=== PATIENT | male | born 1960 | race Caucasian/White ===

== ENCOUNTER 2018-02-27 22:46 | Inpatient (IN) | payer MEDICARE, MEDICAID ==
[~2018-02-27] VITALS: Ht 162.6 cm; Wt 80.7 kg
[~2018-02-27 22:46] MED LIST: ASPI-1159 PO; ATOR20TA65 PO
[2018-02-28] MEDS ORDERED: SODIUM CHLORIDE 0.9% 1,000 ML IV ONE (00:21)
[2018-02-28 02:35] LABS: CHLORIDE 107 mEq/L (98-107)
[2018-02-28 02:37] LABS: BASOPHILS % 0.6 % (0.0-2.0); HEMATOCRIT. 47.5 % (42.0-52.0); LYMPHOCYTES % 16.3 % (20.0-50.0); MEAN CORPUSCULAR HEMOGLOBIN 32.2 pg (28.0-32.0); MEAN CORPUSCULAR VOLUME 95.9 fL (80.0-94.0); MEAN PLATELET VOLUME 7.8 fl (7.4-10.4); MONOCYTES % 9.4 % (2.0-8.0); NEUTROPHILS % 70.7 % (40.0-76.0); PLATELET 219 x1000/uL (130-400); RED BLOOD CELL COUNT 4.95 mill/uL (4.7-6.1); RED CELL DISTRIBUTION WIDTH 14.4 % (11.6-14.6)
[2018-02-28 09:24] VITALS: BP 143/81
[2018-02-28] MEDS ORDERED: ATOR40TA70 PO (09:33)
[2018-02-28] MEDS ORDERED: SACU1TAB PO (09:33)
[2018-02-28] MEDS ORDERED: GABA-531 PO (09:33)
[2018-02-28] MEDS ORDERED: FURO40TA5 PO (09:33)
[2018-02-28] MEDS ORDERED: CARV6.2548 PO (09:33)
[2018-02-28] MEDS ORDERED: CLOP75TA33 PO (09:33)
[2018-02-28] MEDS ORDERED: ISOS60TA4 PO (09:33)
[2018-02-28] MEDS ORDERED: DOCUSATE SODIUM 100MG CAPSULE PO PRN (10:30)
[2018-02-28] MEDS ORDERED: GUAIFENESIN 200MG/10ML SUGAR FREE UDC PO PRN (10:30)
[2018-02-28] MEDS ORDERED: ONDANSETRON HCL 4MG/2ML INJ IV PRN (10:30)
[2018-02-28] MEDS: CLOPIDOGREL 75MG TABLET PO SCH ×3 (10:30→18:56)
[2018-02-28] MEDS ORDERED: ACETAMINOPHEN 325MG TABLET PO PRN (10:30)
[2018-02-28] MEDS ORDERED: NITROGLYCERIN 0.4MG TABLET SL SL PRN (10:30)
[2018-02-28] MEDS ORDERED: TRAMADOL 50MG TABLET PO PRN (10:30)
[2018-02-28] MEDS: FAMOTIDINE 20MG TABLET PO SCH ×3 (10:30→21:05)
[2018-02-28] MEDS ORDERED: CLONIDINE 0.1MG TABLET PO PRN (10:30)
[2018-02-28] MEDS ORDERED: IPRATROPIUM/ALBUTEROL 0.5-3(2.5)MG/3ML NEB INH PRN (10:30)
[2018-02-28] MEDS ORDERED: NA PHOS,M-B/NA PHOS,DI-BA ENEMA 118ML PR PRN (10:30)
[2018-02-28] MEDS ORDERED: LORAZEPAM 0.5MG TABLET PO PRN (10:30)
[2018-02-28] MEDS ORDERED: MAGNESIUM/ALUMINUM HYDROXIDE/SIMETHICONE 30ML UDC PO PRN (10:30)
[2018-02-28 11:45] VITALS: BP 143/81
[2018-02-28 12:00] VITALS: BP 131/80
[2018-02-28] MEDS: FUROSEMIDE 40MG TABLET PO SCH ×2 (12:30→13:34)
[2018-02-28] MEDS: CARVEDILOL 6.25 MG TABLET PO SCH ×3 (12:30→21:07)
[2018-02-28] MEDS: ISOSORBIDE MONONITRATE 60MG TABLET SR 24HR PO SCH ×2 (12:30→13:35)
[2018-02-28] MEDS ORDERED: MEDICATION NOT ON FORMULARY EA (Gabapentin 1 CAP) PO SCH (13:00)
[2018-02-28] MEDS: GABAPENTIN 300MG CAPSULE PO SCH ×2 (13:34→18:49)
[2018-02-28] MEDS: ENOXAPARIN 40MG/0.4ML SYR SUBCUT SCH (13:36)
[2018-02-28 16:00] VITALS: BP 120/76
[2018-02-28 16:00] LABS: CREATINE KINASE 78 IU/L (39-308)
[2018-02-28 16:01] LABS: CREATINE KINASE MB FRACTION < 1.0 ng/mL (0.5-3.6)
[2018-02-28] MEDS ORDERED: MEDICATION NOT ON FORMULARY EA (Sacubitril/Valsartan (Entresto 24 mg-26 mg Tablet) 1 TAB PO SCH (17:00)
[2018-02-28 20:00] VITALS: BP 134/83
[2018-02-28] MEDS ORDERED: ZOLPIDEM TARTRATE 5MG TABLET PO PRN (21:00)
[2018-02-28] MEDS ORDERED: ATORVASTATIN CALCIUM 40MG TABLET PO SCH (21:00)
[2018-02-28] MEDS: ATORVASTATIN CALCIUM 40MG TABLET PO SCH (21:05)
[2018-02-28] MEDS: SACUBITRIL/VALSARTAN 24/26 TAB PO SCH (21:05)
[2018-02-28 23:14] LABS: CREATINE KINASE 67 IU/L (39-308)
[2018-02-28 23:15] LABS: CREATINE KINASE MB FRACTION < 1.0 ng/mL (0.5-3.6)
[2018-03-01] VITALS: BP 140/81
[2018-03-01 04:00] VITALS: BP 117/77
[2018-03-01 06:42] LABS: *AMPHETAMINES SCREEN URINE NEGATIVE (NEGATIVE); *BARBITURATES SCREEN URINE NEGATIVE (NEGATIVE)
[2018-03-01 06:43] LABS: *BENZODIAZEPINES SCREEN URINE NEGATIVE (NEGATIVE); *COCAINE SCREEN URINE NEGATIVE (NEGATIVE); METHADONE URINE SCREEN NEGATIVE (NEGATIVE)
[2018-03-01 06:44] LABS: CANNABINOID URINE SCREEN NEGATIVE (NEGATIVE); OPIATES URINE SCREEN NEGATIVE (NEGATIVE); PHENCYCLIDINE URINE SCREEN NEGATIVE (NEGATIVE)
[2018-03-01 08:00] VITALS: BP 125/76
[2018-03-01] MEDS: CLOPIDOGREL 75MG TABLET PO SCH (08:25)
[2018-03-01] MEDS: ISOSORBIDE MONONITRATE 60MG TABLET SR 24HR PO SCH (08:26)
[2018-03-01] MEDS: GABAPENTIN 300MG CAPSULE PO SCH ×3 (08:26→18:03)
[2018-03-01] MEDS: FUROSEMIDE 40MG TABLET PO SCH (08:26)
[2018-03-01] MEDS: CARVEDILOL 6.25 MG TABLET PO SCH ×2 (08:26→20:42)
[2018-03-01] MEDS: FAMOTIDINE 20MG TABLET PO SCH ×2 (08:27→20:42)
[2018-03-01] MEDS: ENOXAPARIN 40MG/0.4ML SYR SUBCUT SCH (08:27)
[2018-03-01] MEDS: SACUBITRIL/VALSARTAN 24/26 TAB PO SCH ×2 (08:39→20:43)
[2018-03-01] MEDS ORDERED: MEDICATION NOT ON FORMULARY EA (Furosemide 1 TAB) PO SCH (09:00)
[2018-03-01] MEDS ORDERED: MEDICATION NOT ON FORMULARY EA (Isosorbide Mononitrate (Isosorbide Mononitrate Er) 1 TAB PO SCH (09:00)
[2018-03-01 12:00] VITALS: BP 115/78
[2018-03-01 16:00] VITALS: BP 125/85
[2018-03-01 20:00] VITALS: BP 133/75
[2018-03-01] MEDS: ATORVASTATIN CALCIUM 40MG TABLET PO SCH (20:42)
[2018-03-02] VITALS: BP 111/68
[2018-03-02 04:00] VITALS: BP 126/70
[2018-03-02 08:00] VITALS: BP 141/92
[2018-03-02] MEDS: GABAPENTIN 300MG CAPSULE PO SCH ×2 (09:40→15:29)
[2018-03-02] MEDS: FUROSEMIDE 40MG TABLET PO SCH (09:46)
[2018-03-02] MEDS: CLOPIDOGREL 75MG TABLET PO SCH (09:46)
[2018-03-02] MEDS: SACUBITRIL/VALSARTAN 24/26 TAB PO SCH (09:46)
[2018-03-02] MEDS: FAMOTIDINE 20MG TABLET PO SCH (09:46)
[2018-03-02] MEDS: ISOSORBIDE MONONITRATE 60MG TABLET SR 24HR PO SCH (09:48)
[2018-03-02] MEDS: ENOXAPARIN 40MG/0.4ML SYR SUBCUT SCH (09:48)
[2018-03-02] MEDS: CARVEDILOL 6.25 MG TABLET PO SCH (09:48)
[2018-03-02 12:00] VITALS: BP 127/82
[2018-03-02 15:03] VITALS: BP 127/82
== END 2018-03-02 16:45 | disposition home or self-care (01) | DRG 312 ==
LOC: ER 22:46 → 5WST 02-28 04:52 → EDBEDREQTM 02-28 04:56 → EDBEDREQ 02-28 04:56 → ENRESERV 02-28 07:03
PROVIDERS: ADMIT Internal Medicine; ATTEND Internal Medicine
DX: R55 Syncope and collapse (principal); E44.1 Mild protein-calorie malnutrition; Z95.0 Presence of cardiac pacemaker; I10 Essential (primary) hypertension; E83.51 Hypocalcemia; E78.00 Pure hypercholesterolemia, unspecified; Z86.73 Personal history of transient ischemic attack (TIA), and cerebral infarction without residual deficits; Z68.30 Body mass index [BMI] 30.0-30.9, adult; Z79.02 Long term (current) use of antithrombotics/antiplatelets; Z79.82 Long term (current) use of aspirin; Z79.899 Other long term (current) drug therapy
CPT/HCPCS: 36415; 71045; 80061; 80305; 82550; 82553; 83036; 84484; 92523; 93005; 93306; 93880; 96360; 96361; 97116; 97162; 97166; 97530; 97535; 99285; J1650; J7030